=== PATIENT | female | born 1955 | race Two or more races ===

== ENCOUNTER → 2024-01-18 | Outpatient (CLI) | payer MEDICAID ==
[2024-01-18 09:41] LABS: Urine Bacteria None Seen /hpf (None Seen)
[2024-01-18 10:01] LABS: Basophils # (auto) 0 10 ^3/uL (0-0.2); Basophils % (auto) 0.7 % (0.0-2.0); Eosinophils # (auto) 0.1 10 ^3/uL (0-0.8); Eosinophils % (auto) 1.6 % (0.0-7.0); Hematocrit 41.6 % (36.0-46.0); Hemoglobin 14.6 g/dL (12.2-16.2); Lymphocytes # (auto) 1.9 10 ^3/uL (0.4-5.4); Lymphocytes % (auto) 27.4 % (10.0-50.0); Mean Corpuscular Hemoglobin 31.8 pg (28.0-32.0); Mean Corpuscular Hgb Conc. 35.1 g/dL (32.0-36.0); Mean Corpuscular Volume 90.8 fL (80.0-100.0); Monocytes # (auto) 0.5 10 ^3/uL (0-1.3); Monocytes % (auto) 6.6 % (0.0-12.0); Neutrophils # (auto) 4.3 10 ^3/uL (1.6-8.6); Neutrophils % (auto) 63.7 % (37.0-80.0); Nucleated Red Blood Cells % 0.1 %; Platelet Count (auto) 215 10^3/uL (140-450); Red Blood Cells 4.58 10^6/uL (4.0-5.20); Red Cell Distribution Width 13.2 % (11.8-14.3); White Blood Cell 6.8 10^3/uL (4.4-10.8)
[2024-01-18 10:10] LABS: Urine Blood Negative /uL (Negative); Urine Clarity Clear (Clear); Urine Color Light-Yellow (Yellow); Urine Protein, UAD Negative (Negative); Urine Specific Gravity 1.022 (1.001-1.035); Urine Urobilinogen Normal (Negative); Urine WBC 1 /hpf (0 - 5)
[2024-01-18 10:14] LABS: Alanine Aminotransferase 13 U/L (7-40); Albumin 4.3 g/dL (3.2-4.8); Alkaline Phosphatase 95 U/L (46-116); Anion Gap 5 (5-15); Aspartate Aminotransferase 14 U/L (13-40); BUN/Creatinine Ratio 21.7 (10.0-20.0); Bilirubin, Total 0.7 mg/dL (0.2-1.0); Blood Urea Nitrogen 15 mg/dL (9-23); Calcium 9.6 mg/dL (8.7-10.4); Carbon Dioxide 28 mmol/L (20-30); Chloride 107 mmol/L (98-107); Glucose 111 mg/dL (74-106); Potassium 4.2 mmol/L (3.5-5.1); Sodium 140 mmol/L (136-145); Total Protein 6.7 g/dL (5.7-8.2)
== END | disposition home or self-care (01) ==
LOC: LAB 09:29
PROVIDERS: ATTEND Student in an Organized Health Care Education/Training Program
DX: I10 Essential (primary) hypertension (principal); E11.9 Type 2 diabetes mellitus without complications
CPT/HCPCS: 36415; 80053; 81001; 83036; 84443; 85025

== ENCOUNTER → 2024-05-14 | Outpatient (CLI) | payer MEDICAID ==
[2024-05-14 10:14] LABS: Urine Bacteria None Seen /hpf (None Seen)
[2024-05-14 10:28] LABS: Urine Blood Negative /uL (Negative); Urine Clarity Clear (Clear); Urine Color Light-Yellow (Yellow); Urine Mucus FEW (None Seen); Urine Protein, UAD Negative (Negative); Urine Specific Gravity 1.033 (1.001-1.035); Urine Squamous Epithelial Cell FEW /hpf (<5); Urine Urobilinogen Normal (Negative); Urine WBC 4 /hpf (0 - 5); Urine pH 5.5 (5.0-9.0)
[2024-05-14 10:54] LABS: Alanine Aminotransferase 16 U/L (7-40); Albumin 4.1 g/dL (3.2-4.8); Alkaline Phosphatase 96 U/L (46-116); Anion Gap 6 (5-15); Aspartate Aminotransferase 17 U/L (13-40); BUN/Creatinine Ratio 19.2 (10.0-20.0); Blood Urea Nitrogen 14 mg/dL (9-23); Calcium 10.1 mg/dL (8.7-10.4); Carbon Dioxide 29 mmol/L (20-31); Chloride 106 mmol/L (98-107); Potassium 4.2 mmol/L (3.5-5.1); Sodium 141 mmol/L (136-145); Triglycerides 116 mg/dL (< 150)
[2024-05-14 10:55] LABS: Bilirubin, Total 0.5 mg/dL (0.2-1.0); Total Protein 6.7 g/dL (5.7-8.2)
[2024-05-14 10:57] LABS: Cholesterol 214 mg/dL (< 200); Glucose 115 mg/dL (74-106); HDL Cholesterol 69 mg/dL (40-59); LDL Cholesterol 141 mg/dL (< 100)
[2024-05-14 11:24] LABS: Basophils # (auto) 0 10 ^3/uL (0-0.2); Basophils % (auto) 0.4 % (0.0-2.0); Eosinophils # (auto) 0.1 10 ^3/uL (0-0.8); Eosinophils % (auto) 1.2 % (0.0-7.0); Hemoglobin 14.7 g/dL (12.2-16.2); Lymphocytes % (auto) 24.1 % (10.0-50.0); Mean Corpuscular Hemoglobin 30.8 pg (28.0-32.0); Mean Corpuscular Hgb Conc. 34.1 g/dL (32.0-36.0); Mean Corpuscular Volume 90.3 fL (80.0-100.0); Monocytes # (auto) 0.4 10 ^3/uL (0-1.3); Monocytes % (auto) 4.6 % (0.0-12.0); Neutrophils # (auto) 5.7 10 ^3/uL (1.6-8.6); Neutrophils % (auto) 69.7 % (37.0-80.0); Nucleated Red Blood Cells % 0.1 %; Platelet Count (auto) 231 10^3/uL (140-450); Red Blood Cells 4.77 10^6/uL (4.0-5.20); Red Cell Distribution Width 13.6 % (11.8-14.3); White Blood Cell 8.2 10^3/uL (4.4-10.8)
[2024-05-14 11:37] LABS: Creatinine, Urine 98.71 mg/dL (30.0-125.0)
[2024-05-14 11:50] LABS: Micro Albumin < 3.0 mg/L (<30.0); Microalb/Creat Ratio, Urine < 3.0
== END | disposition home or self-care (01) ==
LOC: LAB 10:01
PROVIDERS: ATTEND Student in an Organized Health Care Education/Training Program
DX: E11.9 Type 2 diabetes mellitus without complications (principal); I10 Essential (primary) hypertension
CPT/HCPCS: 36415; 80053; 80061; 81001; 82043; 82570; 83036; 84443; 85025

== ENCOUNTER 2024-07-31 18:57 | Emergency (ER) | payer MEDICAID ==
[~2024-07-31] VITALS: Ht 160 cm; Wt 67.3 kg
[2024-07-31 20:43] VITALS: BP 147/91; PULSE 100; RESP 20; TEMP 98.3; O2SAT 97
--- NOTE | 2024-07-31 21:12 | DVH ---
CT OF THE CERVICAL SPINE WITHOUT CONTRAST HISTORY: NECK PAIN COMPARISON: None TECHNIQUE: Helical images through the cervical spine were obtained without contrast. Sagittal and cor onal reformats were obtained. One or more of the following radiation dose reduction techniques were u sed for this examination: automated exposure control, adjustment of the mA and/or kV according to pat ient size, use of iterative reconstruction technique. FINDINGS: Straightening of the cervical curvature. No grossly displaced fractures or subluxations identified. Disc space narrowing and marginal osteophyte formation most prominent at C5-C6 and C6-C7. The bony sp inal canal is grossly patent. Prevertebral soft tissues appear within normal limits. IMPRESSION: No displaced fractures or subluxations identified. Degenerative changes. If there is persistent clinical concern, follow-up MRI may be obtained to further evaluate.
--- NOTE | 2024-07-31 21:12 | ED.PDOC ---
Back pain HPI HPI Comments 69-YEAR-OLD FEMALE PRESENTS TO ER WITH COMPLAINTS OF NECK PAIN X2 MONTHS. PATIENT REPORTS THAT SHE HAS BEEN EXPERIENCING NECK PAIN X "2 MONTHS", DENYING ANY TRAUMA/INJURY. SHE RATES HER CURRENT PAIN A 7/10 DIFFUSE TO HER NECK AND STATES SHE'S BEEN TAKING IBUPROFEN FOR HER PAIN WITH SOME RELIEF. NOTES THAT TAIWO Gentile FOLLOWED UP WITH AN URGENT CARE PROVIDER LAST MONDAY WITH REGARDS TO HER SYMPTOMS AND WAS REFERRED TO GET A CERVICAL CT SCAN, REPORTING THAT SHE ATTEMPTED TO GET THE CT SCAN BUT WAS TOLD FROM THE RADIOLOGY OFFICE THAT SHE WOULD NEEDED A REFERRAL FROM HER PRIMARY CARE DOCTOR BEFORE GETTING THE CT SCAN. PATIENT PRESENTS TO ER AMBULATORY ON ARRIVAL, WITH STEADY GAIT, IN NO DISTRESS. DENIES FEVER, BODY ACHES, CHILLS, NIGHT SWEATS, FATIGUE, NUMBNESS/TINGLING, HEADACHE, EXTREMITY WEAKNESS OR ANY FURTHER SYMPTOMS/COMPLAINTS Chief Complaint: Neck Pain Time Seen by MD: 19:28 Primary Care Provider: OBIE Reviewed Notes: Nurses Notes, Medications, Allergies Allergies: Coded Allergies: Amoxicillin (Verified Allergy, Unknown, 07/31/24) Home Meds Active Scripts Acetaminophen W/ Codeine (Tylenol W/Cod #3) 1 Tab Tb, 1 TAB PO Q6HPRN, #10 TAB 0 Refills Prov:SHONNA COLLINS 07/31/24 Cyclobenzaprine Hcl (Cyclobenzaprine Hcl) 5 Mg Tab, 1 TAB PO QHSP, #14 TAB 0 Refills Prov:SHONNA COLLINS 07/31/24 Information Source: Patient Mode of Arrival: Ambulatory Past Medical History PAST MEDICAL HISTORY: Cancer (LEFT BREAST CANCER-IN REMISSION), DM Surgical History (Other): LEFT-SIDED MASTECTOMY RIGHT OOPHORECTOMY Family History Family History: Unknown Social History Smoker: Non-Smoker Alcohol: Denies ETOH Use Drugs: Denies Drug Use Lives In: Home Constitutional: denies: chills, diaphoresis, fatigue, fever, malaise, sweats, weakness, others EENTM: denies: blurred vision, double vision, ear bleeding, ear discharge, ear drainage, ear pain, ear ringing, eye pain, eye redness, hearing loss, mouth pain, mouth swelling, nasal discharge, nose bleeding, nose congestion, nose pain, photophobia, tearing, throat pain, throat swelling, voice changes, others Respiratory: denies: cough, hemoptysis, orthopnea, SOB at rest, shortness of breath, SOB with excertion, stridor, wheezing, others Cardiovascular: denies: chest pain, dizzy spells, diaphoresis, Dyspnea on exertion, edema, irregular heart beat, left arm pain, lightheadedness, palpitations, PND, syncope, others Gastrointestinal: denies: abdomen distended, abdominal pain, blood streaked bowels, constipated, diarrhea, dysphagia, difficulty swallowing, hematemesis, melena, nausea, poor appetite, poor fluid intake, rectal bleeding, rectal pain, vomiting, others Genitourinary: denies: abnormal vagina bleeding, burning, dyspareunia, dysuria, flank pain, frequency, hematuria, incontinence, pain, , vagina discharge, urgency, others Neurological: denies: dizziness, fainting, headache, left sided numbness, left sided weakness, numbness, paresthesia, pre-existing deficit, right sided numbn ess, right sided weakness, seizure, speech problems, tingling, tremors, weakness, others Musculoskeletal: reports: others ( STATED IN HPI) Integumetry: denies: bruises, change in color, change in hair/nails, dryness, laceration, lesions, lumps, rash, wounds, others Allergic/Immunocompromised: denies: Difficulty Healing, Frequent Infections, Hives, Itching, others Hematologic/Lymphatic: denies: anemia, blood clots, easy bleeding, easy bruising, swollen glands, others Endocrine: denies: excessive hunger, excessive sweating, excessive thirst, excessive urination, flushing, intolerance to cold, intolerance to heat, unexplained weight gain, unexplained weight loss, others Psychiatric: denies: anxiety, bipolar disorder, depression, hopeless, panic disorder, schizophrenia, sleepless, suicidal, others Physical Exam General Appearance: No Apparent Distress HEENT: Normal ENT Inspection, PERRL/EOMI, Pharynx Normal, TMs Normal Neck: Full Range of Motion, Other (TTP DIFFUSE TO BILATERAL CERVICAL PARASPINALS NOTED. NO SKIN CHANGES NOTED) Respiratory: Chest Non-Tender, Lungs Clear, No Accessory Muscle Use, No Respiratory Distress, Normal Breath Sounds Cardiovascular: No Murmur, No Gallop, Regular Rate/Rhythm Breast Exam: Deferred Gastrointestinal: NOT DONE Genitalia: Deferred Pelvic: Deferred Rectal: Deferred Extremities: Normal capillary refill, Normal range of motion Neurologic: Alert, software sales executive II-XII nml as Tested, No Motor Deficits, Normal Affect, Normal Mood, No Sensory Deficits Cerebellar Function: Normal Reflexes: Normal Skin: Dry, Normal Color, Warm Peripheral Pulses: 2+ carotid (R), 2+ carotid (L), 2+ Radial (R), 2+ Radial (L), 2+ Brachial (R), 2+ Brachial (L) Lymphatic: No Adenopathy Was a procedure done? Was a procedure done?: No Sedation Sedation?: No Back Pain Differential Dx Differential Diagnosis: AAA, Fracture, Other (NEUROVASCULAR INJURY, MASS) X-Ray, Labs, Meds, VS Vital Signs Date Time Temp Pulse Resp B/P (MAP) Pulse Ox O2 Delivery O2 Flow Rate FiO2 07/31/24 20:43 100 20 97 Room Air 07/31/24 20:43 98.3 100 18 147/91 (109) 97 98.3 07/31/24 19:11 98.3 100 20 147/91 (109) 97 98.3 PATIENT: SRINIVAS CARRANZAIAACCT: [id number] UNIT: [id number] : 1955 LOC: ER ROOM / BED: / AGE / SEX: 69 / F ADM STATUS: REG ER SERVICE 99 ORDERING PHYSICIAN: SHONNA COLLINS PROCEDURE(s): CS2 - CERVICAL WITHOUT CONTRAST REASON: NECK PAIN ORDER NUMBER(s): [id number], ACCESSION NUMBER(s): [id number] CT OF THE CERVICAL SPINE WITHOUT CONTRAST HISTORY: NECK PAIN COMPARISON: None TECHNIQUE: Helical images through the cervical spine were obtained without contrast. Sagittal and coronal reformats were obtained. One or more of the following radiation dose reduction techniques were used for this examination: automated exposure control, adjustment of the mA and/or kV according to patient size, use of iterative reconstruction technique. FINDINGS: Straightening of the cervical curvature. No grossly displaced fractures or handley bluxations identified. Disc space narrowing and marginal osteophyte formation most prominent at C5-C6 and C6-C7. The bony spinal canal is grossly patent. Prevertebral soft tissues appear within normal limits. IMPRESSION: No displaced fractures or subluxations identified. Degenerative changes. If there is persistent clinical concern, follow-up MRI may be obtained to further evaluate. ATED BY: DARVIN MOTT MD DICTATED DATE/TIME: 07/31/242109 SIGNED BY: DARVIN MOTT MD SIGNED DATE/TIME: 07/31/242109 CC: CT CERVICAL WITHOUT CONTRAST REVIEWED PATIENT HAD IMPROVEMENT IN SYMPTOMS, NEUROVASCULARLY INTACT AND IN NO DISTRESS PRIOR TO DISCHARGE DISCUSSED WITH PATIENT THAT SHE MAY BENEFIT FROM MRI OF CERVICAL SPINE FOR FURTHER EVALUATION OF SYMPTOMS. ADVISED TO FOLLOW UP WITH PCP IN 1-2 DAYS PATIENT VERBALIZED UNDERSTANDING AND AGREEABLE WITH CURRENT PLAN OF CARE ADVISED TO RETURN TO ER IMMEDIATELY IF SYMPTOMS WORSEN Images Reviewed?: Images reviewed and evaluated by me Time of 1ST Reevaluation: 21:10 Reevaluation 1ST: N/A Patient Education/Counseling: Diagnosis, Treatment, Prognosis, Need For Follow Up Family Education/Counseling: No Family Present Departure 1 Departure Time of Disposition: 21:12 Impression: Primary Impression: Degenerative arthritis of cervical spine Qualified Codes: M47.812 - Spondylosis without myelopathy or radiculopathy, cervical region Additional Impression: Cervical strain Qualified Codes: S16.1XXA - Strain of muscle, fascia and tendon at neck level, initial encounter Disposition: HOME / SELF CARE / HOMELESS Condition: Stable e-Prescriptions Acetaminophen W/ Codeine (Tylenol W/Cod #3) 1 Tab Tb 1 TAB PO Q6HPRN, #10 TAB 0 Refills Prov: SHONNA COLLINS 07/31/24 Cyclobenzaprine Hcl (Cyclobenzaprine Hcl) 5 Mg Tab 1 TAB PO QHSP, #14 TAB 0 Refills Prov: SHONNA COLLINS 07/31/24 Discharged With: Friend Critical Care Note Critical Care Time?: No Stability Stability form required: No Heart Score Heart Score: Heart Score Response (Comments) Value History N/A 0 EKG N/A 0 Age N/A 0 Risk Factors N/A 0 Troponin N/A 0 Total 0 SHONNA COLLINS Jul 31, 2024 21:12
[2024-07-31] MEDS ORDERED: CYCL-837 PO (21:20)
[2024-07-31] MEDS ORDERED: ACE3T PO (21:20)
== END 2024-07-31 21:39 | disposition home or self-care (01) ==
LOC: ER 18:57
DX: S16.1XXA Strain of muscle, fascia and tendon at neck level, initial encounter (principal); M47.812 Spondylosis without myelopathy or radiculopathy, cervical region; Z85.3 Personal history of malignant neoplasm of breast; Z90.721 Acquired absence of ovaries, unilateral; Z88.0 Allergy status to penicillin; X58.XXXA Exposure to other specified factors, initial encounter; Y93.89 Activity, other specified; Y92.89 Other specified places as the place of occurrence of the external cause; Y99.8 Other external cause status
CPT/HCPCS: 72125

== ENCOUNTER 2024-11-04 10:32 | Outpatient (CLI) | payer MEDICAID ==
[~2024-11-04 10:32] MED LIST: ACE3T PO; CYCL-837 PO
[2024-11-04 11:00] LABS: Hematocrit 41.9 % (36.0-46.0); Hemoglobin 14.2 g/dL (12.2-16.2); Mean Corpuscular Hemoglobin 30.1 pg (28.0-32.0); Mean Corpuscular Volume 88.8 fL (80.0-100.0); Nucleated Red Blood Cells % 0.0 %
[2024-11-04 11:20] LABS: Alanine Aminotransferase 13 U/L (7-40); Albumin 4.3 g/dL (3.2-4.8); Alkaline Phosphatase 80 U/L (46-116); Anion Gap 9 (5-15); BUN/Creatinine Ratio 16.0 (10.0-20.0); Blood Urea Nitrogen 12 mg/dL (9-23); Calcium 10.0 mg/dL (8.7-10.4); Carbon Dioxide 27 mmol/L (20-31); Potassium 4.2 mmol/L (3.5-5.1); Sodium 143 mmol/L (136-145); Total Protein 6.7 g/dL (5.7-8.2)
[2024-11-04 11:21] LABS: Bilirubin, Total 0.6 mg/dL (0.2-1.0); HDL Cholesterol 59 mg/dL (40-59)
[2024-11-04 11:25] LABS: Chloride 107 mmol/L (98-107); Cholesterol 205 mg/dL (< 200); Glucose 107 mg/dL (74-106); Triglycerides 153 mg/dL (< 150)
== END 2024-11-04 17:00 | disposition home or self-care (01) ==
LOC: LAB 10:32
PROVIDERS: ATTEND Licensed Practical Nurse
DX: E11.9 Type 2 diabetes mellitus without complications (principal); E78.5 Hyperlipidemia, unspecified; E55.9 Vitamin D deficiency, unspecified; Z12.11 Encounter for screening for malignant neoplasm of colon; Z85.3 Personal history of malignant neoplasm of breast
CPT/HCPCS: 36415; 80053; 80061; 82043; 82274; 82306; 82607; 83036; 85025